=== PATIENT | female | born 1935 | race Caucasian/White ===

== ENCOUNTER → 2016-05-10 | Outpatient (CLI) | payer MEDICARE, OTHER ==
[2014-10-18 20:05] VITALS: BP 138/66
[~2016-05-10] MED LIST: ASPI-482 PO; ATOR10TA PO; CITA10TA8 PO; DONE10TA34 PO; MELO-156 PO
--- NOTE | 2016-05-10 12:00 | RAD ---
Examination: CT head without contrast History: History of change in behavior, cerebral edema. Comparison: 10/18/2014 PQ[facility] Compliance Statement: One or more of the following individualized dose reduction techniques were utilized for this examination: 1. Automated exposure control 2. Adjustment of the mA and/or kV according to patient size 3. Use of iterative reconstruction technique Findings: There is hypodensity identified in the right frontal lobe region likely prior surgical changes and/or focal edema. No evidence of midline shift identified The tejada-white matter differentiation is maintained. The basal cisterns are uneffaced There is no acute intracranial bleed or identified Prior right frontal craniotomy changes identified The visualized paranasal sinuses, mastoid air cells are clear Impression: Hypodensity identified in the right frontal lobe region likely prior surgical changes or edema. Recommend MRI with and without contrast for further evaluation.
== END | disposition home or self-care (01) ==
LOC: CT 11:01
PROVIDERS: ATTEND Family Medicine
DX: G93.6 Cerebral edema (principal); Z86.59 Personal history of other mental and behavioral disorders
CPT/HCPCS: 70450

== ENCOUNTER → 2016-05-10 | Outpatient (CLI) | payer MEDICARE, OTHER ==
[2014-10-18 20:05] VITALS: BP 138/66
[2016-05-10 08:14] LABS: BASO # 0.1 x10^3/uL (0.0-0.2); BASO % 2 % (0-3); EOS # 0.1 x10^3/uL (0.0-0.7); EOS % 2 % (0-3); HEMATOCRIT 42.6 % (36.0-47.0); LYMPH # 1.4 x10^3/uL (1.0-4.8); LYMPH % 31 % (24-48); MEAN CORPUSCULAR HEMOGLOBIN 28 pg (25-35); MEAN CORPUSCULAR HGB CONC 33 g/dL (31-37); MEAN CORPUSCULAR VOLUME 85 fL (79-100); MONO # 0.5 x10^3/uL (0.0-1.1); MONO % 10 % (0-9); NEUT # 2.5 x10^3uL (1.8-7.7); NEUT % 54 % (31-73); PLATELET COUNT 184 x10^3/uL (140-400); RED BLOOD COUNT 5.01 x10^6/uL (3.50-5.40); RED CELL DISTRIBUTION WIDTH 13.8 % (11.5-14.5); WHITE BLOOD COUNT 4.6 x10^3/uL (4.0-11.0)
[2016-05-10 08:19] LABS: ALBUMIN 3.6 g/dL (3.4-5.0); ALBUMIN/GLOBULIN RATIO 1.1 (1.0-1.7); CALCIUM 8.9 mg/dL (8.5-10.1); CREATININE 0.9 mg/dL (0.6-1.0); GFR 60.6; POTASSIUM 4.1 mmol/L (3.5-5.1); TOTAL BILIRUBIN 0.5 mg/dL (0.2-1.0); TOTAL PROTEIN 6.8 g/dL (6.4-8.2)
== END | disposition home or self-care (01) ==
LOC: SPEC 07:52
PROVIDERS: ATTEND Family Medicine
DX: G93.6 Cerebral edema (principal); G30.9 Alzheimer's disease, unspecified; E55.9 Vitamin D deficiency, unspecified; G93.9 Disorder of brain, unspecified
CPT/HCPCS: 36415; 80053; 82306; 83735; 84443; 85027

== ENCOUNTER → 2016-06-15 | Outpatient (CLI) | payer MEDICARE, OTHER ==
[2014-10-18 20:05] VITALS: BP 138/66
[2016-06-15 13:19] LABS: COLOR,URINE YELLOW
[2016-06-15 13:20] LABS: BACTERIA,URINE 0 /HPF (0-FEW); BILIRUBIN,URINE NEG (NEG); CLARITY,URINE CLEAR; GLUCOSE,URINE NEG (NEG); NITRITE,URINE NEG (NEG); RBC,URINE RARE /HPF (0-2); SQUAMOUS EPITHELIAL CELL,UR OCC /LPF; UROBILINOGEN,URINE 0.2 mg/dL (0.2 mg/dL)
== END | disposition home or self-care (01) ==
LOC: SPEC 12:30
PROVIDERS: ATTEND Family Medicine
DX: N39.0 Urinary tract infection, site not specified (principal)
CPT/HCPCS: 81001; 87086

== ENCOUNTER → 2016-06-19 | Outpatient (CLI) | payer MEDICARE, OTHER ==
[2014-10-18 20:05] VITALS: BP 138/66
[2016-06-19 11:12] LABS: ALBUMIN 3.5 g/dL (3.4-5.0); ALBUMIN/GLOBULIN RATIO 1.1 (1.0-1.7); CALCIUM 9.4 mg/dL (8.5-10.1); POTASSIUM 4.3 mmol/L (3.5-5.1); TOTAL BILIRUBIN 0.5 mg/dL (0.2-1.0); TOTAL PROTEIN 6.7 g/dL (6.4-8.2)
[2016-06-19 11:15] LABS: GFR 53.6
[2016-06-19 11:16] LABS: BASO % 1 % (0-3); EOS # 0.1 x10^3/uL (0.0-0.7); EOS % 2 % (0-3); HEMATOCRIT 41.6 % (36.0-47.0); LYMPH # 1.4 x10^3/uL (1.0-4.8); LYMPH % 25 % (24-48); MEAN CORPUSCULAR HEMOGLOBIN 29 pg (25-35); MEAN CORPUSCULAR HGB CONC 34 g/dL (31-37); MEAN CORPUSCULAR VOLUME 86 fL (79-100); MONO # 0.5 x10^3/uL (0.0-1.1); MONO % 8 % (0-9); NEUT # 3.5 x10^3uL (1.8-7.7); NEUT % 63 % (31-73); PLATELET COUNT 187 x10^3/uL (140-400); RED BLOOD COUNT 4.85 x10^6/uL (3.50-5.40); RED CELL DISTRIBUTION WIDTH 14.3 % (11.5-14.5); WHITE BLOOD COUNT 5.5 x10^3/uL (4.0-11.0)
[2016-06-19 11:17] LABS: BASO # 0.1 x10^3/uL (0.0-0.2)
== END | disposition home or self-care (01) ==
LOC: SPEC 09:15
PROVIDERS: ATTEND Family Medicine
DX: G30.9 Alzheimer's disease, unspecified (principal)
CPT/HCPCS: 36415; 80053; 84443; 85027

== ENCOUNTER → 2016-07-30 | Outpatient (CLI) | payer MEDICARE, OTHER ==
[2014-10-18 20:05] VITALS: BP 138/66
[~2016-07-30] MED LIST changes: -DONE10TA34 PO; +DONE10TA61 PO; -MELO-156 PO; +MELO7.5T29 PO
[2016-07-30 11:29] LABS: ALBUMIN 3.5 g/dL (3.4-5.0); ALBUMIN/GLOBULIN RATIO 1.3 (1.0-1.7); CALCIUM 9.3 mg/dL (8.5-10.1); CREATININE 0.9 mg/dL (0.6-1.0); POTASSIUM 4.1 mmol/L (3.5-5.1); TOTAL BILIRUBIN 0.3 mg/dL (0.2-1.0); TOTAL PROTEIN 6.3 g/dL (6.4-8.2)
[2016-07-30 11:42] LABS: GFR 60.6
== END | disposition home or self-care (01) ==
LOC: SPEC 10:35
PROVIDERS: ATTEND Family Medicine
DX: E78.5 Hyperlipidemia, unspecified (principal)
CPT/HCPCS: 36415; 80053

== ENCOUNTER → 2016-09-14 | Outpatient (CLI) | payer MEDICARE, OTHER ==
[2014-10-18 20:05] VITALS: BP 138/66
[2016-09-15 04:09] LABS: HEMOGLOBIN A1C 5.8 % (4.8-5.6)
== END | disposition home or self-care (01) ==
LOC: LAB 08:14
PROVIDERS: ATTEND Family Medicine
DX: Z00.01 Encounter for general adult medical examination with abnormal findings (principal); E78.00 Pure hypercholesterolemia, unspecified; R73.01 Impaired fasting glucose
CPT/HCPCS: 36415; 80061; 83036

== ENCOUNTER → 2017-01-26 | Outpatient (CLI) | payer MEDICARE, OTHER ==
[2014-10-18 20:05] VITALS: BP 138/66
[2017-01-26 12:46] LABS: ALBUMIN 3.5 g/dL (3.4-5.0); ALBUMIN/GLOBULIN RATIO 1.1 (1.0-1.7); CALCIUM 9.7 mg/dL (8.5-10.1); GFR 53.5; TOTAL BILIRUBIN 0.3 mg/dL (0.2-1.0); TOTAL PROTEIN 6.7 g/dL (6.4-8.2)
== END | disposition home or self-care (01) ==
LOC: SPEC 12:15
PROVIDERS: ATTEND Family Medicine
DX: E78.5 Hyperlipidemia, unspecified (principal); E55.9 Vitamin D deficiency, unspecified
CPT/HCPCS: 36415; 80053; 82306

== ENCOUNTER → 2018-07-14 | Outpatient (CLI) | payer MEDICARE, OTHER ==
[2014-10-18 20:05] VITALS: BP 138/66
--- NOTE | 2018-07-14 14:22 | RAD ---
CT HEAD INDICATION: headaches COMPARISON: 05/10/2016 Exposure: One or more of the following individualized dose reduction techniques were utilized for this examination: 1. Automated exposure control 2. Adjustment of the mA and/or kV according to patient size 3. Use of iterative reconstruction technique TECHNIQUE: 5 mm contiguous axial images were obtained from the skull base to the vertex in both bone and soft tissue algorithm. FINDINGS: Moderate size hypodensity identified in the right frontal lobe likely encephalomalacia or old infarct or prior surgical change similar to prior exam. Craniotomy changes identified in the right frontal skull bone region. No evidence of acute intracranial hemorrhage. No extra-axial fluid collections. No mass effect or midline shift. Ventricular size is appropriate. Basal cisterns are patent. No fractures identified.Granados-white differentiation is preserved.Globes and orbits are within normal limits. Paranasal sinuses and mastoid air cells are clear. IMPRESSION: 1. No acute intracranial findings. 2. Hypodensity identified in the right frontal lobe similar to prior exam likely encephalomalacia from prior surgery or old infarct. Electronically signed by: Buzz Jama MD (07/14/2018 2:19 PM) [place] [id number]
== END | disposition home or self-care (01) ==
LOC: CT 13:40
PROVIDERS: ATTEND Family Medicine
DX: G93.89 Other specified disorders of brain (principal)
CPT/HCPCS: 70450

== ENCOUNTER → 2018-11-18 | Outpatient (CLI) | payer MEDICARE, OTHER ==
[2014-10-18 20:05] VITALS: BP 138/66
--- NOTE | 2018-11-18 14:07 | RAD ---
EXAM: Bilateral knees, 3 views. HISTORY: Pain. COMPARISON: None. FINDINGS: 3 views of both knees are obtained. There is bilateral medial compartment predominant tricompartmental joint space narrowing with subchondral sclerosis and marginal osteophytosis. There is no fracture, dislocation or subluxation. There is enthesopathy along the superior patellae. There is no joint effusion. IMPRESSION: 1. Moderate tricompartmental osteoarthritis of both knees. 2. No acute osseous finding. Electronically signed by: Slime Claros MD (11/18/2018 2:04 PM) [facility]
== END | disposition home or self-care (01) ==
LOC: DXRAD 09:16
PROVIDERS: ATTEND Family Medicine
DX: M17.0 Bilateral primary osteoarthritis of knee (principal); M25.862 Other specified joint disorders, left knee; M25.861 Other specified joint disorders, right knee; M76.892 Other specified enthesopathies of left lower limb, excluding foot; M76.891 Other specified enthesopathies of right lower limb, excluding foot
CPT/HCPCS: 73562